=== PATIENT | female | born 1975 | race Caucasian/White ===

== ENCOUNTER → 2020-03-09 13:26 | Outpatient (CLI) | payer BC, SELFPAY ==
--- NOTE | 2020-03-09 | DI.MG.S_ITS ---
BILATERAL DIGITAL SCREENING MAMMOGRAM 3D/2D WITH CAD: 03/09/2020 CLINICAL: Routine screening. Family history of breast cancer. Comparison is made to exams dated: 07/23/2018 mammogram and 07/26/2011 mammogram - [facility]. The tissue of both breasts is heterogeneously dense. This may lower the sensitivity of mammography. Current study was also evaluated with a Computer Aided Detection (CAD) system. No significant masses, calcifications, or other findings are seen in either breast. There has been no significant interval change. IMPRESSION: NEGATIVE There is no mammographic evidence of malignancy. A 1 year screening mammogram is recommended. This exam was interpreted at Station ID: [id number]. NOTE: For mammograms, a report in lay terms will be sent to the patient. Approximately 15% of breast malignancies will not be visualized mammographically. In the management of a palpable breast mass, a negative mammogram must not discourage biopsy of a clinically suspicious lesion. Electronically Signed By: Ryan Saldivar acr/penrad:03/09/2020 14:12:15 letter sent: Normal Exam ACR BI-RADS Category 1: Negative 3341F
== END ==
PROVIDERS: PCP Registered Nurse Diabetes Educator; Referring Provider Registered Nurse Diabetes Educator; Visit Provider Registered Nurse Diabetes Educator
DX: Z12.31 Encounter for screening mammogram for malignant neoplasm of breast (principal); Z80.3 Family history of malignant neoplasm of breast
CPT/HCPCS: 77063; 77067

== ENCOUNTER → 2020-06-15 14:27 | Outpatient (CLI) | payer BC, SELFPAY ==
[2020-06-15] MEDS: COVID-19 VACC #1, MRNA(MOD) 100 MCG/0.5 ML VIAL IM (14:32)
== END ==
PROVIDERS: PCP Registered Nurse Diabetes Educator; Visit Provider Internal Medicine
DX: Z23 Encounter for immunization (principal)
CPT/HCPCS: 0011A; 91301

== ENCOUNTER → 2020-07-13 14:29 | Outpatient (CLI) | payer BC, SELFPAY ==
[2020-07-13] MEDS: COVID-19 VACC #2, MRNA(MOD) 100 MCG/0.5 ML VIAL IM (14:36)
== END ==
PROVIDERS: PCP Registered Nurse Diabetes Educator; Visit Provider Internal Medicine
DX: Z23 Encounter for immunization (principal)
CPT/HCPCS: 0012A; 91301

== ENCOUNTER → 2021-07-30 11:31 | Outpatient (CLI) | payer BC, SELFPAY ==
--- NOTE | 2021-07-30 11:32 | DI.MG.S_ITS ---
BILATERAL DIGITAL SCREENING MAMMOGRAM 3D/2D WITH CAD: 07/30/2021 CLINICAL: Routine screening. Family history of breast cancer. Comparison is made to exams dated: 03/09/2020 mammogram - [facility], 07/23/2018 mammogram, and 07/26/2011 mammogram - [facility]. The tissue of both breasts is heterogeneously dense. This may lower the sensitivity of mammography. Current study was also evaluated with a Computer Aided Detection (CAD) system. No significant masses, calcifications, or other findings are seen in either breast. There has been no significant interval change. IMPRESSION: NEGATIVE There is no mammographic evidence of malignancy. A 1 year screening mammogram is recommended. This exam was interpreted at Station ID: [id number]. NOTE: For mammograms, a report in lay terms will be sent to the patient. Approximately 15% of breast malignancies will not be visualized mammographically. In the management of a palpable breast mass, a negative mammogram must not discourage biopsy of a clinically suspicious lesion. Electronically Signed By: Ayden christianson/janiya:07/30/2021 12:27:30 letter sent: Normal Exam ACR BI-RADS Category 1: Negative 3341F
== END ==
PROVIDERS: PCP Registered Nurse Diabetes Educator; Referring Provider Registered Nurse Diabetes Educator; Visit Provider Registered Nurse Diabetes Educator
DX: Z12.31 Encounter for screening mammogram for malignant neoplasm of breast (principal); Z80.3 Family history of malignant neoplasm of breast
CPT/HCPCS: 77063; 77067

== ENCOUNTER → 2022-07-31 16:43 | Outpatient (CLI) | payer BC, OTHER, SELFPAY ==
--- NOTE | 2022-07-31 | DI.MG.S_ITS ---
BILATERAL DIGITAL SCREENING MAMMOGRAM 3D/2D WITH CAD: 07/31/2022 CLINICAL: Routine screening. Family history of breast cancer. Comparison is made to exams dated: 07/30/2021 mammogram, 03/09/2020 mammogram - [facility], and 07/23/2018 mammogram - [facility]. Both breasts are heterogeneously dense, which may obscure small masses (category c / 51-75% glandular tissue). Current study was also evaluated with a Computer Aided Detection (CAD) system. No significant masses, calcifications, or other findings are seen in either breast. There has been no significant interval change. IMPRESSION: NEGATIVE There is no mammographic evidence of malignancy. A 1 year screening mammogram is recommended. Please consider MRI screening due to dense breasts and elevated lifetime risk. Based on Tyrer-Cuzick model (a risk assessment model), the patient's lifetime risk is 24.0% and her 10 year risk is 5.2%. If a patient has an elevated risk, a more comprehensive evaluation should be considered and/or a referral to a genetic counselor. The [employer], [employer], and NCCN Guidelines advise the consideration of Breast MRI as an adjunct to screening mammography in patients whose Lifetime risk to develop breast cancer is 20% or higher. This exam was interpreted at Station ID: [id number]. NOTE: For mammograms, a report in lay terms will be sent to the patient. Approximately 15% of breast malignancies will not be visualized mammographically. In the management of a palpable breast mass, a negative mammogram must not discourage biopsy of a clinically suspicious lesion. Electronically Signed By: David Moffett M.D. lc/:08/01/2022 07:57:00 letter sent: Normal Exam ACR BI-RADS Category 1: Negative 3341F
== END ==
PROVIDERS: PCP Registered Nurse Diabetes Educator; Referring Provider Registered Nurse Diabetes Educator; Visit Provider Registered Nurse Diabetes Educator
DX: Z12.31 Encounter for screening mammogram for malignant neoplasm of breast (principal); Z80.3 Family history of malignant neoplasm of breast
CPT/HCPCS: 77063; 77067

== ENCOUNTER → 2022-10-30 15:10 | Outpatient (CLI) | payer OTHER, BC, SELFPAY ==
--- NOTE | 2022-10-30 15:11 | DI.MRI.S_ITS ---
BREAST MRI OF BOTH BREASTS: 10/30/2022 CLINICAL: Elevated breast cancer Risk. TECHNIQUE: The patient was placed prone in a dedicated breast imaging coil. Precontrast axial STIR and 3D FLASH without fat saturation sequences were obtained. Both before and after bolus injection of contrast, sequential 1-minute axial 3D FLASH with fat saturation sequences for 3 time points, with subtraction images and maximum intensity projections (MIP's) generated. Delayed sagittal FLASH images with fat saturation were also obtained. Computer-aided detection, including computer algorithm analysis of MRI image data for lesion detection and characterization, pharmacokinetic analysis, with further physician review for interpretation, was performed. COMPARISON: [facility], , SCREENING MAMMO BI, 07/30/2021, 12:02. [facility], , SCREENING MAMMO BI, 07/31/2022, 16:56. Image quality: Excellent. There is moderate background parenchymal enhancement. There is heterogeneously dense fibroglandular tissue in the bilateral breast. Right breast: No suspicious mass, non-mass enhancement, or architectural distortion. No skin or nipple abnormalities. No axillary or internal mammary chain adenopathy. Left breast: No suspicious mass, non-mass enhancement, or architectural distortion. No skin or nipple abnormalities. No axillary or internal mammary chain adenopathy. Miscellaneous: Incidental note of a 0.9 cm central hepatic cyst. Otherwise, visualized portions of the upper abdomen and chest appear unremarkable. IMPRESSION: NEGATIVE 1. No MRI evidence for malignancy in the right breast. 2. No MRI evidence for malignancy in the left breast. Recommend continued annual screening mammography and consideration for continued annual adjunct screening breast MRI. COMMENT: The imaging literature indicates that a negative contrast breast MRI examination has a high sensitivity and a moderate specificity for detecting and excluding invasive carcinomas to a detection threshold of 3-5 mm; nonetheless, appropriate clinical and mammographic follow-up are recommended. MRI is not sensitive for detecting DCIS (ductal carcinoma in situ) and may not detect large invasive neoplasms that show only minimal enhancement such as mucinous carcinoma. If there are suspicious calcifications or clinically worrisome palpable masses, then biopsy should still be considered. Invasive neoplasms can be hidden by co-existent and benign enhancement caused by mastitis, hormone therapy effects, radiation therapy, , and recent biopsy or surgery. False positive examinations can occur in a number of circumstances, including breasts that have recently been subject to invasive procedures and those that contain atypical ductal hyperplasia, hormonally stimulated glandular tissue, fat necrosis, or radial scars. This exam was interpreted at Station ID: [id number]. Electronically Signed By: Larry Mcclellan M.D. aty/:10/30/2022 16:33:53 ACR BI-RADS Category 1: Negative 3341F
== END ==
PROVIDERS: PCP Registered Nurse Diabetes Educator; Referring Provider Registered Nurse Diabetes Educator; Visit Provider Registered Nurse Diabetes Educator
DX: Z12.39 Encounter for other screening for malignant neoplasm of breast (principal)
CPT/HCPCS: 77049; A9579

== ENCOUNTER → 2023-04-28 10:09 | Outpatient (CLI) | payer OTHER, BC, SELFPAY | PROVIDERS: PCP Registered Nurse Diabetes Educator; Visit Provider Physician Assistant Surgical | DX: S91.002A Unspecified open wound, left ankle, initial encounter (principal) | CPT/HCPCS: 87070; 87147; 87205 ==

== ENCOUNTER 2023-04-29 07:49 | Emergency (ER) | payer OTHER, SELFPAY ==
[2023-04-29] VITALS (15 sets, daily range): BP systolic 95–117; BP diastolic 66–76; PULSE 80–114; RESP 18–20; TEMP 36.9–37; O2SAT 98–100; BMI 26.6
--- NOTE | 2023-04-29 07:59 | ED_ITS ---
HPI - General Adult General Chief complaint: Skin/Abscess/Foreign Body Stated complaint: open wound got infected L heel Time Seen by Provider: 04/29/23 07:58 History of Present Illness HPI narrative: 48-year-old female who denies substantial prior medical history presents with concern for left foot rash. She states in the last few days, after skiing and using a hot tub with a wound on her heel from her ski boot, she is developed painful blanching redness to her left heel. She states it was relatively localized yesterday in clinic when she was seen, but after that it worsened and now involves most of the top of her left foot. She denies known history of MRSA or antibiotic allergies. She is taken 3 Keflex doses so far. She has had subjective fevers though none this morning. No Tylenol this morning. No prior surgeries to left lower extremity. She is having trouble walking due to pain. No other new concerns. Spouse here with her. Per chart review, she was seen yesterday with concern for swelling, redness, pain to left lower extremity, with suspicion for possible cellulitis per note. She used hot tub. She was given both mupirocin and cephalexin. Wound sent for culture. Per review, wound culture showed Gram-positive cocci on stain, with culture pending as of this morning. Related Data Home Medications Medication Instructions Recorded Confirmed multivitamin [Daily Multi-Vitamin] PO 01/17/20 04/28/23 Previous Rx's Medication Instructions Recorded cephalexin 500 mg capsule 500 mg PO BID 7 days #14 caps 04/28/23 mupirocin 2 % topical ointment 1 applic topical BID #15 grams 04/28/23 doxycycline hyclate 100 mg capsule 100 mg PO BID #14 caps 04/29/23 levofloxacin 750 mg tablet 750 mg PO DAILY #6 tabs 04/29/23 Allergies Allergy/AdvReac Type Severity Reaction Status Date / Time No Known Drug Allergies Allergy Verified 04/28/23 09:25 Review of Systems Review of Systems Narrative: Constitutional: no fever, no chills Eyes: no visual disturbance, no discharge Ears, Nose, Mouth, Throat: no rhinorrhea, no sore throat Cardiovascular: no chest pain, no palpitations Respiratory: no cough, no shortness of breath Gastrointestinal: no abdominal pain, no vomiting, no diarrhea Genitourinary: no dysuria, no hematuria Musculoskeletal: no back pain, no neck stiffness Skin: + rash, wound Neurological: no focal weakness, no focal numbness Patient History Medical History COVID-19 (~10/2019) Depression (~1999) History of abnormal cervical Pap smear (~2008) History of HPV infection (~2008) Surgical History Anesthesia History of abnormality of cervix (~2009) History of dilatation and curettage (~2015) Family History Grandfather Suicide Grandmother Congestive heart failure Grandfather Stroke Grandmother Breast cancer Social History Smoking Status: Never smoker Smoking Status: Never smoker Exam Narrative Exam Narrative: Const: no acute distress, non toxic appearing; calm, conversant, pleasant Eyes: PERRLA, EOMI ENT: mucous membranes moist Neck: supple, non-tender Resp: no respiratory distress, clear to auscultation bilaterally Card: regular tachycardic, no murmurs Abd: non tender diffusely, no rigidity or rebound or guarding Back: no T or L spine tenderness, no CVA tenderness bilaterally Extrem: no deformities, no swelling bilateral lower extremities; there is a scabbed roughly 1.5 cm wound to posterior left heel with surrounding blanching erythema that extends to most of dorsum of left foot, with associated tenderness; no crepitus, pain out of proportion, dark discoloration; there is good range of motion of ankle without substantial pain; no other wounds; soft compartments present, 2+ distal pulses present; fully intact strength and sensation; no calf tenderness or swelling Neuro: ANOx4, 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 Initial Vital Signs Initial Vital Signs: Vital Signs Temperature 98.4 F 04/29/23 07:56 Pulse Rate 114 H 04/29/23 07:56 Respiratory Rate 18 04/29/23 07:56 Blood Pressure 117/66 04/29/23 07:56 Pulse Oximetry 100 04/29/23 07:56 Oxygen Delivery Method Room Air 04/29/23 07:56 Course Course Course Narrative: This patient returns 1 day after starting antibiotics with spreading erythema that is concerning for worsening cellulitis, with prior hot tub exposure that could suggest atypical organisms such as Pseudomonas. She has taken 3 Keflex thus far, which while technically not sufficient to justify antibiotic failure given length of time, is still concerning given her potential atypical infection and spreading erythema. In this setting, I am initiating aggressive workup and treatment, with blood cultures, lactate, CBC, CMP, x-ray to assess for any evidence of gas, and IV Levaquin and doxycycline, which should provide very broad coverage. I think necrotizing fasciitis is less likely at this time but I am pursuing broad workup with close monitoring and close reassessment. This is not consistent with fracture or DVT. Patient appears hemodynamically stable, afebrile, currently comfortable. Giving Tylenol. She declines other pain medications. Labs: CBC with no leukocytosis, though neutrophilic predominance, with anemia without prior for comparison, with no thrombocytopenia. Chemistry grossly reassuring. Lactate reassuring. HCG netative. Radiology review of imaging below, which I agree with on my independent review: XR: FINDINGS: Bones: No fractures or dislocations. No suspicious bony lesions. Soft tissues: No tibiotalar joint effusion. Achilles tendon appears normal. Diffuse soft tissue edema consistent with cellulitis. No soft tissue gas or radiopaque foreign body. IMPRESSION: Cellulitis. Dictated by: Kentrell Caldera M.D. on 04/29/2023 at 8:44 Patient being monitored during treatment. She appears well, stable, with slight improvement in rash that is now decreasing in size from where lines were drawn after my initial assessment. This is NOT consistent with necrotizing fasciitis. Patient appears clinically stable, comfortable, well-perfused, denying any new concerns. Patient appearing very well here, stable, with improving rash. It is now after 1:00 p.m.. She is very comfortable and is able to follow strict return precautions with close follow up. In this setting, with reassuring ED observation, she appears appropriate for discharge on both Levaquin and doxycycline prescriptions for 7 days. I have instructed her to stop Keflex. She understands importance of 48 hour follow-up and immediate return for any new or worsening symptoms. Repeat exam and vital signs reassuring. Questions answered. Plan reviewed. Patient discharged in stable condition. Orders Ordered: ED Orders 04/29/23 08:14 XR foot LT min 3V Stat 04/29/23 08:28 Blood Culture Stat Test Serum,Qual Stat 04/29/23 08:42 CBC Auto Diff [Complete Blood Count AUTO DIFF] Stat CMP [Comprehensive Metabolic Panel] Stat Lactate (Lactic Acid) Stat Discontinued Medications Acetaminophen (Acetaminophen 325 Mg Tablet) 975 mg PO NOW ONE Stop: 04/29/23 08:19 Last Admin: 04/29/23 08:51 Dose: 975 mg Documented By: RAMIRO Sodium Chloride (Normal Saline 0.9%) 1,000 mls @ 1,000 mls/hr IV BOLUS ONE Stop: 04/29/23 09:16 Last Infusion: 04/29/23 10:04 Dose: Infused Documented By: Admin: 04/29/23 09:01 Dose: 1,000 mls/hr Documented By: RAMIRO Levofloxacin (Levaquin) 750 mg in 150 mls @ 100 mls/hr IV NOW ONE Stop: 04/29/23 09:46 Last Infusion: 04/29/23 10:24 Dose: Infused Documented By: Admin: 04/29/23 08:49 Dose: 100 mls/hr Documented By: RAMIRO Doxycycline Hyclate 100 mg/ (Sodium Chloride) 100 mls @ 100 mls/hr IV NOW ONE Stop: 04/29/23 08:18 Last Infusion: 04/29/23 11:22 Dose: Infused Documented By: RAMIRO(2) Admin: 04/29/23 10:24 Dose: 100 mls/hr Documented By: ELISE Vital Signs Vital signs: Vital Signs - 8 hr 04/29/23 09:00 04/29/23 09:30 04/29/23 10:00 Temperature Pulse Rate 96 H 89 92 H Respiratory Rate Blood Pressure Pulse Oximetry 100 100 100 Oxygen Delivery Method 04/29/23 10:27 04/29/23 10:27 04/29/23 10:30 Temperature Pulse Rate 94 H 86 Respiratory Rate Blood Pressure 108/75 Pulse Oximetry 100 100 Oxygen Delivery Method 04/29/23 10:30 04/29/23 11:00 04/29/23 11:00 Temperature Pulse Rate 83 Respiratory Rate Blood Pressure 104/76 112/66 Pulse Oximetry 100 Oxygen Delivery Method 04/29/23 11:30 04/29/23 11:30 03/05/24 12:00 Temperature Pulse Rate 81 87 Respiratory Rate Blood Pressure 95/68 Pulse Oximetry 100 100 Oxygen Delivery Method 04/29/23 12:01 04/29/23 12:01 04/29/23 12:30 Temperature Pulse Rate 86 80 Respiratory Rate 20 Blood Pressure 110/68 Pulse Oximetry 100 100 Oxygen Delivery Method 04/29/23 12:30 04/29/23 13:00 04/29/23 13:00 Temperature Pulse Rate 83 Respiratory Rate Blood Pressure 108/74 107/70 Pulse Oximetry 100 Oxygen Delivery Method 04/29/23 13:30 Temperature 98.6 F Pulse Rate 83 Respiratory Rate 20 Blood Pressure 111/74 Pulse Oximetry 98 Oxygen Delivery Method Room Air Medical Decision Making Lab Data 04/29/23 08:42 04/29/23 08:42 Labs: Lab Results 04/29/23 04/29/23 Range/Units 08:28 08:42 WBC 9.9 (4.5-11.0) X10^3/uL RBC 4.35 (4.0-5.2) X10^6/uL Hgb 10.6 L (12.0-16.0) g/dL Hct 32.7 L (36-46) % MCV 75.2 L (80-100) fL MCH 24.3 L (26-34) PG MCHC 32.3 (30-36) % RDW 17.3 H (11.6-14.8) % Plt Count 216 (150-400) X10^3/uL Neut % (Auto) 87.3 H (50-75) % Lymph % (Auto) 5.8 L (25-40) % Gilchrist % (Auto) 6.0 (3-14) % Eos % (Auto) 0.7 L (2-4) % Baso % (Auto) 0.2 (0-2) % Neut # (Auto) 8700 H (6290-1615) /uL Lymph # (Auto) 600 L (0435-3120) /uL Gilchrist # (Auto) 600 (0-900) /uL Eos # (Auto) 100 (0-450) /uL Baso # (Auto) 0 (0-100) /uL Sodium 139 (137-145) mmol/L Potassium 3.7 (3.4-5.1) mmol/L Chloride 110 H (98-107) mmol/L Carbon Dioxide 24 (22-32) mmol/L BUN 5 L (7-17) mg/dL Creatinine 0.68 (0.52-1.04) mg/dL Estimated GFR > 60 (>60) mL/min BUN/Creatinine Ratio 7.4 (6-22) Glucose 111 H (70-100) mg/dL Lactate 1.2 (0.7-2.1) mmol/L Calcium 8.9 (8.4-10.2) mg/dL Total Bilirubin 0.5 (0.2-1.3) mg/dL AST 17 (14-36) IU/L ALT 15 (<35) IU/L Alkaline Phosphatase 49 (38-126) U/L Total Protein 7.1 (6.3-8.2) g/dL Albumin 3.9 (3.5-5.0) g/dL Globulin 3.2 (1.7-4.1) g/dL Albumin/Globulin Ratio 1.2 (1.0-2.8) Serum , Qual Negative (Negative) Discharge Plan Departure Patient Disposition: Home Clinical Impression: Cellulitis Instructions: DI for Cellulitis -- Adult Activity Restrictions/Additional Instructions: It was a pleasure taking care of you today. It is important to fully read and understand the below. Please ask us if you have any questions. We think the most likely cause of your symptoms is cellulitis. I am changing your antibiotics, with IV doses given here. Please take Levaquin once daily and doxycycline twice a day for 7 days. Stop Keflex as discussed. You must be reassessed by a doctor within 48 hours. If you worsen prior to this, immediately return please. No tests or assessments are perfect, and your condition could oil change technician time. If your symptoms change or worsen, it is very important you immediately seek medical care. If you have any new or worsening pain, spreading rash, lightheadedness or passing out, swelling, difficulty using your legs, shortness of breath, fever, vomiting, confusion, numbness, weakness, or anything else that concerns you, please immediately seek medical care. If you have been prescribed any medications: please read the drug package inserts on how to properly use the medication and any potential side effects. If you had labs (blood tests) or imaging (CT scan or x-rays) done during your visit: please follow up on the results of these with your primary care doctor, as discussed. In addition, please know the results we received today may be preliminary. Our usual practice is to follow up on tests within a few days of a patient's discharge from the Emergency Department and notify you of any changes. These may lead to changes to your treatment plan. However, the best way to obtain and interpret these test results is through your Primary Care Provider. If you need to update your contact information, please stop by the lead front desk agent and alert the Registration personnel before you leave the Emergency Department. Thank you for the opportunity to participate in your healthcare. We are always here and happy to see you in the futur Prescriptions: New levofloxacin 750 mg tablet 750 mg PO DAILY Qty: 6 0RF Rx Instructions: start 04/30/23, first dose given in ER doxycycline hyclate 100 mg capsule 100 mg PO BID Qty: 14 0RF No Action mupirocin 2 % ointment 1 applic topical BID Qty: 15 0RF Rx Instructions: apply to wound site cephalexin 500 mg capsule 500 mg PO BID 7 Days Qty: 14 0RF multivitamin PO Referrals: Adolfo Butler ARNP [Primary Care Provider] - Stand Alone Forms: Patient Portal/API
--- NOTE | 2023-04-29 08:14 | DI.RAD.S_ITS ---
PROCEDURE: XR FOOT LT MIN 3V INDICATIONS: infection, assess for gas TECHNIQUE: 3 views of the foot were acquired. COMPARISON: None. FINDINGS: Bones: No fractures or dislocations. No suspicious bony lesions. Soft tissues: No tibiotalar joint effusion. Achilles tendon appears normal. Diffuse soft tissue edema consistent with cellulitis. No soft tissue gas or radiopaque foreign body. IMPRESSION: Cellulitis. Dictated by: Kentrell Caldera M.D. on 04/29/2023 at 8:44 Approved by: Kentrell Caldera M.D. on 04/29/2023 at 8:46
--- NOTE | 2023-04-29 08:38 | PC.NURSE ---
Pt came to the ED today because she has been experiencing worsening redness and edema on her left foot. Pt states that she went snowboarding and got a blister on her left heel and then went in the hot tub later that night. Pt returned home from her snowboarding trip and was prescribed keflex for her blister. Pt reports taking keflex for 3 days and is now unable to bear weight on her left foot. Left foot red, edemetous and warm to touch. Pt denies having any pain or fevers. A&Ox4.
[2023-04-29] MEDS: levoFLOXacin 750 MG/150 ML PIGGYBACK 100 MG IV (08:49)
[2023-04-29] MEDS: ACETAMINOPHEN 325 MG TABLET 975 MG PO (08:51)
[2023-04-29 08:57] LABS: Add Manual Diff / Slide Review NO; Basophils Absolute Auto 0 /uL (0-100); Basophils Percent Auto 0.2 % (0-2); Eosinophils Absolute Auto 100 /uL (0-450); Eosinophils Percent Auto 0.7 % (2-4); Hematocrit 32.7 % (36-46); Hemoglobin 10.6 g/dL (12.0-16.0); Lymphocytes Absolute Auto 600 /uL (1100-4500); Lymphocytes Percent Auto 5.8 % (25-40); Mean Corpuscular HGB Conc 32.3 % (30-36); Mean Corpuscular Hemoglobin 24.3 PG (26-34); Mean Corpuscular Volume 75.2 fL (80-100); Monocytes Absolute Auto 600 /uL (0-900); Neutrophils Absolute Auto 8700 /uL (1500-7000); Neutrophils Percent Auto 87.3 % (50-75); Platelet Count 216 X10^3/uL (150-400); Red Blood Cell Count 4.35 X10^6/uL (4.0-5.2); Red Cell Distribution Width 17.3 % (11.6-14.8); White Blood Cell Count 9.9 X10^3/uL (4.5-11.0)
[2023-04-29] MEDS: SODIUM CHLORIDE 0.9% 1,000 ML 1000 ML IV (09:01)
[2023-04-29 09:09] LABS: Lactate (Lactic Acid) 1.2 mmol/L (0.7-2.1)
[2023-04-29 09:10] LABS: Alanine Aminotransferase 15 IU/L (<35); Albumin 3.9 g/dL (3.5-5.0); Albumin Globulin Ratio 1.2 (1.0-2.8); Alkaline Phosphatase 49 U/L (38-126); Aspartate Aminotransferase 17 IU/L (14-36); BUN Creatinine Ratio 7.4 (6-22); Bilirubin Total 0.5 mg/dL (0.2-1.3); Blood Urea Nitrogen 5 mg/dL (7-17); Calcium 8.9 mg/dL (8.4-10.2); Carbon Dioxide 24 mmol/L (22-32); Chloride 110 mmol/L (98-107); Estimated Glomerular Filt Rate > 60 mL/min (>60); Globulin 3.2 g/dL (1.7-4.1); Glucose 111 mg/dL (70-100); HEMOLYSIS < 15 (0-50); Potassium 3.7 mmol/L (3.4-5.1); Sodium 139 mmol/L (137-145); Total Protein 7.1 g/dL (6.3-8.2)
[2023-04-29 10:00] LABS: Pregnancy Test Serum,Qual Negative (Negative)
[2023-04-29] MEDS: DOXYCYCLINE 100 MG in SODIUM CHLORIDE 0.9% 100 ML IV (10:24)
--- NOTE | 2023-04-29 10:30 | PC.NURSE ---
Pt sitting up in bed. A&Ox4. Denies pain.
== END 2023-04-29 13:31 | disposition home or self-care (01) ==
PROVIDERS: Emergency Provider Emergency Medicine; PCP Registered Nurse Diabetes Educator
DX: L03.116 Cellulitis of left lower limb (principal); R50.9 Fever, unspecified
CPT/HCPCS: 36415; 73630; 80053; 83605; 84703; 85025; 87040; 96361; 96365; 96366; 96367; 99284; J1956

== ENCOUNTER → 2023-09-05 13:17 | Outpatient (CLI) | payer OTHER, SELFPAY ==
--- NOTE | 2023-09-05 13:18 | DI.MG.S_ITS ---
BILATERAL DIGITAL SCREENING MAMMOGRAM 3D/2D WITH CAD: 09/05/2023 CLINICAL: Routine screening. Family history of breast cancer. Comparison is made to exams dated: 07/31/2022 mammogram, 07/30/2021 mammogram, and 03/09/2020 mammogram - [facility]. Both breasts are heterogeneously dense, which may obscure small masses (category c / 51-75% glandular tissue). Current study was also evaluated with a Computer Aided Detection (CAD) system. No significant masses, calcifications, or other findings are seen in either breast. There has been no significant interval change. IMPRESSION: NEGATIVE There is no mammographic evidence of malignancy. A 1 year screening mammogram is recommended. Based on Tyrer-Cuzick model (a risk assessment model), the patient's lifetime risk is 23.8% and her 10 year risk is 5.4%. If a patient has an elevated risk, a more comprehensive evaluation should be considered and/or a referral to a genetic counselor. The [employer], [employer], and NCCN Guidelines advise the consideration of Breast MRI as an adjunct to screening mammography in patients whose Lifetime risk to develop breast cancer is 20% or higher. This exam was interpreted at Station ID: [id number]. NOTE: For mammograms, a report in lay terms will be sent to the patient. Approximately 15% of breast malignancies will not be visualized mammographically. In the management of a palpable breast mass, a negative mammogram must not discourage biopsy of a clinically suspicious lesion. Electronically Signed By: Ayden christianson/janiya:09/05/2023 15:17:47 letter sent: Normal Exam ACR BI-RADS Category 1: Negative 3341F
== END ==
LOC: MAMMO 13:18
PROVIDERS: PCP Registered Nurse Diabetes Educator; Referring Provider Registered Nurse Diabetes Educator; Visit Provider Registered Nurse Diabetes Educator
DX: Z12.31 Encounter for screening mammogram for malignant neoplasm of breast (principal); Z80.3 Family history of malignant neoplasm of breast; R92.333 Mammographic heterogeneous density, bilateral breasts
CPT/HCPCS: 77063; 77067

== ENCOUNTER → 2024-09-09 11:34 | Outpatient (CLI) | payer OTHER, SELFPAY ==
--- NOTE | 2024-09-09 11:35 | DI.MG.S_ITS ---
MM screening mammo BI: 09/09/2024. BI-RADS: 1 CLINICAL: 49-year old female for bilateral screening mammogram. Tyrer-Cuzick lifetime risk of 25.8%. No personal or first-degree family history of breast cancer. Current reported family history of breast cancer: paternal grandmother. PRIOR EXAMS 09/05/2023, 10/30/2022, 07/31/2022, 07/30/2021. MAMMOGRAPHY TECHNIQUE: 2D and 3D (tomosynthesis) digital mammographic views obtained, with additional images as needed for full coverage. Current study was also evaluated with a Computer Aided Detection (CAD) system. DENSITY D. The breasts are extremely dense, which lowers the sensitivity of mammography. MAMMOGRAPHY FINDINGS Bilateral: No suspicious mass, asymmetry, microcalcification, or other abnormality seen. No significant change from comparison. IMPRESSION: * No evidence of malignancy. RECOMMENDATIONS Bilateral * According to the Tyrer-Cuzick Risk Assessment Model, based on the information provided your patient has a greater than 20% lifetime risk for developing breast cancer. Consider supplemental screening with breast MRI and participation in a high risk screening program. * Annual screening mammography. OVERALL ASSESSMENT CATEGORY BI-RADS-1: Negative. [employer] recommends annual screening mammography beginning at age 40 for women with average risk of breast cancer. ELECTRONICALLY SIGNED: Desiree Tamez M.D. on 09/09/2024 at 09:51:28 PM PT Interpreting Station ID: [id number]
== END ==
PROVIDERS: PCP Registered Nurse Diabetes Educator; Referring Provider Registered Nurse Diabetes Educator; Visit Provider Registered Nurse Diabetes Educator
DX: Z12.31 Encounter for screening mammogram for malignant neoplasm of breast (principal); Z80.3 Family history of malignant neoplasm of breast; R92.343 Mammographic extreme density, bilateral breasts
CPT/HCPCS: 77063; 77067